=== PATIENT | female | born 1985 | race Caucasian/White ===

== ENCOUNTER 2021-12-14 20:24 | Emergency (ER) | payer OTHER, SELFPAY ==
[2021-12-14 20:45] VITALS: BP 121/77; PULSE 72; RESP 20; TEMP 36.4; O2SAT 98; BMI 29.6
--- NOTE | 2021-12-14 23:25 | ED.ANIMALBIT ---
HPI - Animal Bite General Chief Complaint: Animal Bite Stated Complaint: needs antibiotics, cuts on hands from animal Time Seen by Provider: 12/14/21 23:25 Source: patient Mode of arrival: ambulatory Limitations: no limitations History of Present Illness HPI narrative: Patient dog was chasing a cat cat fell down from the tree when patient tried to take her she scratched and bit her on right index finger. No other injuries patient is keeping the cat at home Related Data Previous Rx's Medication Instructions Recorded cyclobenzaprine 10 mg tablet 10 mg PO Q8H 5 days #15 tabs 10/09/21 nirmatrelvir 300 mg (150 mg x See Rx Instructions PO .COMPLEX 10/11/21 2)-ritonavir 100 mg tablet (EUA) #30 tabs (Paxlovid 300 mg () amoxicillin 875 mg-potassium 1 tab PO BID #20 tabs 12/14/21 clavulanate 125 mg tablet Allergies Allergy/AdvReac Type Severity Reaction Status Date / Time acetaminophen [Tylenol] Allergy Unknown stomach Verified 12/14/21 20:47 upset doxycycline Allergy Unknown stomach Verified 12/14/21 20:47 upset No Known Allergies Allergy Unknown Unverified 10/09/21 15:53 Review of Systems Review of Systems: Yes all other systems are reviewed and are negative [facility] Social History Social History Patient Tobacco Use Status: Current everyday Tobacco user Physical Exam ED Vital Signs: Vital Signs - 24 hr 12/14/21 20:45 Temperature 97.6 F Pulse Rate 72 Respiratory Rate 20 Blood Pressure 121/77 Pulse Oximetry 98 Oxygen Delivery Method Room Air BMI result Body Mass Index 29.6 Extrem Hand/finger images: 1. Superficial laceration right index finger tendons are intact good range of movement Discharge Plan Discharge Clinical Impression: Cat bite Patient Disposition: Home, Self-Care Instructions: Animal Bite (ED) Additional Instructions: Local care as advised Take antibiotic to avoid infection Report to ER if worsening of swelling or infection Prescriptions: New amoxicillin-pot clavulanate 875-125 mg tablet 1 tab PO BID Qty: 20 0RF No Action cyclobenzaprine 10 mg tablet 10 mg PO Q8H 5 Days Qty: 15 0RF Paxlovid (EUA) 150 mg x 2- 100 mg tablet See Rx Instructions PO .COMPLEX Qty: 30 0RF Rx Instructions: take TWO 150 mg tablets of nirmatrelvir with ONE 100 mg tablet of ritonavir twice daily for 5 days PO
--- NOTE | 2021-12-14 23:46 | PC.NURSE ---
scratches to bilateral hands/ rt wrist, superficial bite to rt hand fingerpads
[2021-12-14] MEDS: Amoxicillin/Potassium Clav 875 MG TABLET PO (23:48)
[2021-12-14 23:49] VITALS: PULSE 64; RESP 16; O2SAT 98
--- NOTE | 2021-12-14 23:52 | PC.NURSE ---
bacitracin applied to abrasions/ superficial bites and covered with DPD . pt in no distress
== END 2021-12-15 00:18 | disposition home or self-care (01) ==
LOC: HO.ED 23:54
PROVIDERS: Emergency Provider Internal Medicine
DX: S61.250A Open bite of right index finger without damage to nail, initial encounter (principal); W55.01XA Bitten by cat, initial encounter; Y93.9 Activity, unspecified; Y92.9 Unspecified place or not applicable; Y99.9 Unspecified external cause status; Z79.899 Other long term (current) drug therapy
CPT/HCPCS: 99283; 99284

== ENCOUNTER 2022-05-23 20:54 | Emergency (ER) | payer OTHER, SELFPAY ==
[2022-05-23 21:13] VITALS: BP 143/94; PULSE 101; RESP 16; TEMP 36.8; O2SAT 99; BMI 56.4
[2022-05-23 21:34] LABS: Strep A Nucleic Acid Positive (Negative)
[2022-05-23 22:03] LABS: Influenza A PCR NEGATIVE (Negative); Influenza B PCR NEGATIVE (Negative); Resp Syncy Virus RNA Qual PCR NEGATIVE (Negative); SARS COV2 PCR INHOUSE NEGATIVE (Negative)
--- NOTE | 2022-05-23 23:33 | ED_ITS ---
HPI - General Adult General Chief complaint: General Medical Stated complaint: Sore Throat Time Seen by Provider: 05/23/22 23:33 Source: patient Mode of arrival: ambulatory Limitations: no limitations History of Present Illness HPI narrative: Patient complaining of sore throat for last 3 days started with scratching feeling now slightly pain to swallow no other family member sick no fever chills Related Data Previous Rx's Medication Instructions Recorded cyclobenzaprine 10 mg tablet 10 mg PO Q8H 5 days #15 tabs 10/09/21 nirmatrelvir 300 mg (150 mg See Rx Instructions PO .COMPLEX 10/11/21 x2)-ritonavir 100 mg tablet,dose #30 tabs pack(EUA) (Paxlovid) amoxicillin 875 mg-potassium 1 tab PO BID #20 tabs 12/14/21 clavulanate 125 mg tablet cefuroxime axetil 500 mg tablet 500 mg PO BID 7 days #14 tabs 05/23/22 ibuprofen 600 mg tablet 600 mg PO Q6H PRN fever or pain 05/23/22 #30 tabs Allergies Allergy/AdvReac Type Severity Reaction Status Date / Time acetaminophen [Tylenol] Allergy Unknown stomach Verified 12/14/21 20:47 upset doxycycline Allergy Unknown stomach Verified 12/14/21 20:47 upset No Known Allergies Allergy Unknown Unverified 10/09/21 15:53 Review of Systems Review of Systems: Yes all other systems are reviewed and are negative [facility] Social History Social History Patient Tobacco Use Status: Current everyday Tobacco user Advance Directives: No Physical Exam ED Vital Signs: Vital Signs - 24 hr 05/23/22 21:13 05/24/22 00:03 Temperature 98.2 F 98.9 F Pulse Rate 101 H 84 Respiratory Rate 16 18 Blood Pressure 143/94 H 132/87 Pulse Oximetry 99 97 Oxygen Delivery Method Room Air Room Air BMI result Body Mass Index 56.4 Appearance: Alert. Oriented X3. No acute distress. ENT: Erythematous posterior no exudates Oral Mucosa moist Neck: Normal inspection. Neck supple. CVS: Normal heart rate and rhythm. Pulses normal. Respiratory: No respiratory distress. Equal air entry bilateral, no wheezing/rales/rhonchi Skin: Skin warm and dry. Normal skin color. Normal skin turgor. Extremities: No lower extremity edema. Neuro: Oriented X 3. Medications Administered Discontinued Medications Generic Name Dose Route Start Last Admin Trade Name Freq PRN Reason Stop Dose Admin Cefuroxime Axetil 500 mg 05/23/22 23:36 05/24/22 00:02 Cefuroxime Axetil 500 Mg Tablet PO 05/23/22 23:37 500 mg ONCE ONE Administration Ibuprofen 600 mg 05/23/22 23:36 05/24/22 00:02 Ibuprofen 600 Mg Tablet PO 05/23/22 23:37 600 mg ONCE ONE Administration Medical Decision Making Medical Decision Making MDM Narrative: Patient with uncomplicated strep positive discharge patient home on Ceftin Lab Data MDM Lab Attestation statement: I reviewed the patient's lab results. Labs: Lab Results 05/23/22 05/23/22 Range/Units 21:19 21:19 Influenza Type A (PCR) NEGATIVE (Negative) Influenza Type B (PCR) NEGATIVE (Negative) RSV RNA Qual (PCR) NEGATIVE (Negative) SARS-CoV-2 RNA (RT-PCR) NEGATIVE (Negative) S. pyogenes GrpA SHAMA Positive A (Negative) Discharge Plan Discharge Clinical Impression: Strep pharyngitis Patient Disposition: Home, Self-Care Instructions: Strep Throat (ED) Additional Instructions: Take antibiotic as prescribed Follow with PCP if not better Prescriptions: New cefuroxime axetil 500 mg tablet 500 mg PO BID 7 Days Qty: 14 0RF ibuprofen 600 mg tablet 600 mg PO Q6H PRN (Reason: fever or pain) Qty: 30 0RF No Action amoxicillin-pot clavulanate 875-125 mg tablet 1 tab PO BID Qty: 20 0RF cyclobenzaprine 10 mg tablet 10 mg PO Q8H 5 Days Qty: 15 0RF Paxlovid (EUA) 150 mg x 2- 100 mg tablet See Rx Instructions PO .COMPLEX Qty: 30 0RF Rx Instructions: take TWO 150 mg tablets of nirmatrelvir with ONE 100 mg tablet of ritonavir twice daily for 5 days PO Interventions: ED Discharge Assessment Last Done: 05/24/22 00:08 Discharge Date/Time: 05/24/22 00:08
[2022-05-24] MEDS: Ibuprofen 600 MG TABLET PO (00:02)
[2022-05-24 00:03] VITALS: BP 132/87; PULSE 84; RESP 18; TEMP 37.2; O2SAT 97
== END 2022-05-24 00:08 | disposition home or self-care (01) ==
PROVIDERS: Emergency Provider Internal Medicine
DX: J02.0 Streptococcal pharyngitis (principal); Z20.822 Contact with and (suspected) exposure to COVID-19; F17.200 Nicotine dependence, unspecified, uncomplicated
CPT/HCPCS: 0241U; 36415; 87651; 99283

== ENCOUNTER 2022-10-16 15:09 | Emergency (ER) | payer OTHER, SELFPAY ==
--- NOTE | ~2022-10-16 | XR_ITS ---
EXAMINATION: XR FINGER, RIGHT CLINICAL INFORMATION: Laceration COMPARISON: None available. TECHNIQUE: Three views of the right second. FINDINGS: There is a comminuted minimally displaced fracture of the distal tuft of the right second finger. There is evidence of trauma to the overlying soft tissues suggestive of a compound fracture. No soft tissue foreign body. Normal joint spaces. XR/XR finger RT min 2V IMPRESSION: Compound fracture of the distal tuft of the second finger.
[2022-10-16 16:37] VITALS: BP 159/92; PULSE 68; RESP 16; TEMP 36.8; O2SAT 100; BMI 25.6
--- NOTE | 2022-10-16 16:39 | ED_ITS ---
HPI - Extremity Injury (Upper) General Chief Complaint: Wound/Laceration Stated Complaint: right finger injury Time Seen by Provider: 10/16/22 18:19 Related Data Previous Rx's Medication Instructions Recorded cyclobenzaprine 10 mg tablet 10 mg PO Q8H 5 days #15 tabs 10/09/21 nirmatrelvir 300 mg (150 mg See Rx Instructions PO .COMPLEX 10/11/21 x2)-ritonavir 100 mg tablet,dose #30 tabs pack(EUA) (Paxlovid) amoxicillin 875 mg-potassium 1 tab PO BID #20 tabs 12/14/21 clavulanate 125 mg tablet cefuroxime axetil 500 mg tablet 500 mg PO BID 7 days #14 tabs 05/23/22 ibuprofen 600 mg tablet 600 mg PO Q6H PRN fever or pain 05/23/22 #30 tabs cephalexin 250 mg capsule 250 mg PO Q6H 5 days #20 caps 10/16/22 ibuprofen 600 mg tablet 600 mg PO Q6H PRN pain #45 tabs 10/16/22 oxycodone 5 mg capsule 5 mg PO BID PRN severe pain #10 10/16/22 caps Allergies Allergy/AdvReac Type Severity Reaction Status Date / Time acetaminophen [Tylenol] Allergy Unknown stomach Verified 10/16/22 16:43 upset doxycycline Allergy Unknown stomach Verified 10/16/22 16:43 upset PMFSH Social History Social History Alcohol intake: current Alcohol intake frequency: holidays/special occasions only Patient Tobacco Use Status: Current everyday Tobacco user Substance Use Type: Marijuana Physical Exam Vital Signs: Vital Signs: Last Vital Signs Temp 98.1 F 10/16/22 19:56 Pulse 60 10/16/22 19:56 Resp 19 10/16/22 19:56 BP 127/78 10/16/22 19:56 Pulse Ox 97 10/16/22 19:56 O2 Del Method Room Air 10/16/22 19:56 BMI result Body Mass Index 25.6 Course Course Course Narrative: RME: 37 yo F w/no sig PMHx c/o laceration to distal R index finger involving nail s/p doing yard work [employer]. admits was cutting ruth ann w/ and she got cut w/bong. Tetanus unknown +lac to right index finger involving nail. not through and through XR & TDap ordered Full HPI, ROS and PE to be performed by primary ED provider. Medications Administered Discontinued Medications Generic Name Dose Route Start Last Admin Trade Name Freq PRN Reason Stop Dose Admin Diphtheria/Tetanus/Acell Pertussis 0.5 ml 10/16/22 16:39 10/16/22 18:19 Diphth,Pertus(Acell),Tet Adult 0.5 Ml Syringe IM 10/16/22 16:40 0.5 ml .ONCE ONE Administration Ibuprofen 600 mg 10/16/22 18:46 10/16/22 19:01 Ibuprofen 600 Mg Tablet PO 10/16/22 18:47 600 mg ONCE ONE Administration Lidocaine HCl 5 ml 10/16/22 18:47 10/16/22 19:01 Lidocaine Hcl 1 % Mpf 5 Ml Vial INFILTRATI 10/16/22 18:48 5 ml ONCE ONE Administration Oxycodone HCl 5 mg 10/16/22 20:02 10/16/22 20:16 Oxycodone Hcl Immed Release 5 Mg Tablet PO 10/16/22 20:03 5 mg ONCE ONE Administration Discharge Plan Discharge Clinical Impression: Laceration of finger, Open fracture of tuft of distal phalanx of finger Patient Disposition: Home, Self-Care Instructions: Finger Fracture (ED), Finger Laceration (ED) Additional Instructions: Please follow-up with orthopedics. Call tomorrow to make an appointment. Have sutures removed in 10-14 days. Keep dressing on finger for the next 24 hours. You may gently cleanse the wound with mild soap and water tomorrow. Keep a close eye on your wound. Watch for any signs of infection fevers chills, increased redness or swelling. Take prescribed antibiotics as directed. Take ibuprofen as directed as needed for pain. Take oxycodone as needed for severe pain. Do not drink alcohol or drive while taking this medication. We will be unable to refill this controlled substance from the emergency department, you must follow-up with your primary care physician or Orthopedics for further pain management as needed. If any new or worsening symptoms occur please return for re-evaluation Prescriptions: New cephalexin 250 mg capsule 250 mg PO Q6H 5 Days Qty: 20 0RF ibuprofen 600 mg tablet 600 mg PO Q6H PRN (Reason: pain) Qty: 45 0RF oxycodone 5 mg capsule 5 mg PO BID PRN (Reason: severe pain) Qty: 10 0RF Rx Instructions: Partial Fill upon patient request. No Action amoxicillin-pot clavulanate 875-125 mg tablet 1 tab PO BID Qty: 20 0RF cefuroxime axetil 500 mg tablet 500 mg PO BID 7 Days Qty: 14 0RF ibuprofen 600 mg tablet 600 mg PO Q6H PRN (Reason: fever or pain) Qty: 30 0RF cyclobenzaprine 10 mg tablet 10 mg PO Q8H 5 Days Qty: 15 0RF Paxlovid (EUA) 150 mg x 2- 100 mg tablet See Rx Instructions PO .COMPLEX Qty: 30 0RF Rx Instructions: take TWO 150 mg tablets of nirmatrelvir with ONE 100 mg tablet of ritonavir twice daily for 5 days PO Referrals: [facility] [place] Orth[facility] Surgeons [Provider Group] Interventions: ED Discharge Assessment Last Done: 10/16/22 20:28 Discharge Date/Time: 10/16/22 20:29
--- NOTE | 2022-10-16 18:06 | PC.NURSE ---
Patient presents after her finger was lacerated while her and SO were doing yard work and her finger was sliced with a grid trimmer. Patient has a 2 inch laceration to the right middle finger that cuts through her fingernail.
[2022-10-16] MEDS: Diphth,Pertus(ACell),Tet Adult 0.5 ML SYRINGE IM (18:19)
--- NOTE | 2022-10-16 18:42 | ED_ITS ---
HPI - Wound/Laceration General Chief Complaint: Wound/Laceration Stated Complaint: right finger injury Time Seen by Provider: 10/16/22 18:19 Source: patient and RN notes reviewed Mode of arrival: ambulatory Limitations: no limitations History of Present Illness HPI narrative: This is a 37-year-old female who presents emergency department today with complaints of right index finger laceration. Patient reports that her boyfriend was trimming the hedges and accidentally lacerated patient's right 2nd finger with this trench trimmer fine. Patient immediately rinsed out the wound with water. Patient is unsure last dose was given to her. She sensation in her fingertips and is able to flex and extend the finger. No other complaints or concerns at this time. Onset (ago): hour(s) Extremity Location: right: hand (Second finger ) Place: home Patient tetanus UTD: No Context: accidental Associated symptoms: pain Related Data Previous Rx's Medication Instructions Recorded cyclobenzaprine 10 mg tablet 10 mg PO Q8H 5 days #15 tabs 10/09/21 nirmatrelvir 300 mg (150 mg See Rx Instructions PO .COMPLEX 10/11/21 x2)-ritonavir 100 mg tablet,dose #30 tabs pack(EUA) (Paxlovid) amoxicillin 875 mg-potassium 1 tab PO BID #20 tabs 12/14/21 clavulanate 125 mg tablet cefuroxime axetil 500 mg tablet 500 mg PO BID 7 days #14 tabs 05/23/22 ibuprofen 600 mg tablet 600 mg PO Q6H PRN fever or pain 05/23/22 #30 tabs cephalexin 250 mg capsule 250 mg PO Q6H 5 days #20 caps 10/16/22 ibuprofen 600 mg tablet 600 mg PO Q6H PRN pain #45 tabs 10/16/22 oxycodone 5 mg capsule 5 mg PO BID PRN severe pain #10 10/16/22 caps Allergies Allergy/AdvReac Type Severity Reaction Status Date / Time acetaminophen [Tylenol] Allergy Unknown stomach Verified 10/16/22 16:43 upset doxycycline Allergy Unknown stomach Verified 10/16/22 16:43 upset Review of Systems Review of Systems: Constitutional: No Weight loss, No Fever, No Chills ENT/Mouth: No Ear Pain, No Nasal Congestion, No Sinus Pain, No Hoarseness, No sore throat, No Rhinorrhea, No Swallowing Difficulty Cardiovascular: No Chest Pain, No SOB Respiratory: No Cough, No Sputum, No Wheezing Gastrointestinal: No Nausea, No Vomiting, No Diarrhea, No Constipation, No Abdominal pain Genitourinary: No Dysuria, No Urinary Frequency, No Hematuria, No Urinary Incontinence/retention, No Urgency, No Flank Pain Musculoskeletal: No Myalgias, No Joint Swelling Skin: +laceration No Skin Lesions, No rash Neuro: No Weakness, No Numbness, No Paresthesias Yes all other systems are reviewed and are negative Constitutional: Constitutional: Reports as per [facility] Social History Social History Alcohol intake: current Alcohol intake frequency: holidays/special occasions only Patient Tobacco Use Status: Current everyday Tobacco user Smoked in Last 30 Days: Yes Use of substances other than those prescribed or required for medical reasons: Yes Substance Use Type: Marijuana Advance Directives: No Advance Directives Information Provided: Yes Physical Exam Vital Signs: Vital Signs: Last Vital Signs Temp 98.1 F 10/16/22 19:56 Pulse 60 10/16/22 19:56 Resp 19 10/16/22 19:56 BP 127/78 10/16/22 19:56 Pulse Ox 97 10/16/22 19:56 O2 Del Method Room Air 10/16/22 19:56 BMI result Body Mass Index 25.6 Const: General: cooperative, comfortable and no acute distress Orientation/consciousness: patient oriented x3 Limitations: no limitations HEENT: Head: Yes normal to inspection, Yes normocephalic and Yes atraumatic Ears: hearing grossly normal bilaterally General nose exam: Normal external nose present Face and sinus: Yes normal facial exam Mouth: Normal oral and palatal mucosa present, oropharynx normal and moist mucous membranes Throat: Yes posterior oropharynx normal Eyes: General: appearance normal, both eyes and all related structures Eyelids: Yes eyelids normal Conjunctivae: conjunctivae normal Sclerae: sclerae normal Pupils: Equal, round and reactive pupils present EOM: EOMs intact bilaterally Neck: Neck: Yes normal visual inspection, Yes full ROM and Yes no lymphadenopathy Lymphatic: no lymphadenopathy noted Chest: Chest palpation & inspection: normal inspection of the chest Resp: Effort & Inspection: normal respiratory effort and able to speak in complete sentences Auscultation: clear to auscultation bilaterally, no crackles, no rales, no rhonchi and no wheezes Cardio: Rate: regular rate Rhythm: regular rhythm Heart sounds: S1 normal heart sound present and S2 normal heart sound present GI: Inspection: Yes normal to inspection Skin: Other: See above - able to flex and extend at the PIP and DIP. Full sensation and circulation intact. General skin exam: no rashes or lesions noted Trauma: no lacerations or abrasions Wounds: no wounds Neuro: General: patient oriented x3 and moves all extremities Cranial nerves: Yes Equal, round and reactive pupils present Extrem: General: Yes normal to inspection Right upper extremity: normal to inspection Left upper extremity: normal to inspection Right lower extremity: normal to inspection Left lower extremity: normal to inspection Medications Administered Discontinued Medications Generic Name Dose Route Start Last Admin Trade Name Freq PRN Reason Stop Dose Admin Diphtheria/Tetanus/Acell Pertussis 0.5 ml 10/16/22 16:39 10/16/22 18:19 Diphth,Pertus(Acell),Tet Adult 0.5 Ml Syringe IM 10/16/22 16:40 0.5 ml .ONCE ONE Administration Ibuprofen 600 mg 10/16/22 18:46 10/16/22 19:01 Ibuprofen 600 Mg Tablet PO 10/16/22 18:47 600 mg ONCE ONE Administration Lidocaine HCl 5 ml 10/16/22 18:47 10/16/22 19:01 Lidocaine Hcl 1 % Mpf 5 Ml Vial INFILTRATI 10/16/22 18:48 5 ml ONCE ONE Administration Oxycodone HCl 5 mg 10/16/22 20:02 10/16/22 20:16 Oxycodone Hcl Immed Release 5 Mg Tablet PO 10/16/22 20:03 5 mg ONCE ONE Administration Medical Decision Making Medical Decision Making MDM Narrative: 37-year-old female presenting to the emergency department today with right index finger injury. Patient's boyfriend accidentally clipped her right index finger with hedge clippers. She immediately cleansed the wound. She is able to flex and extend at the PIP and DIP. Distal sensation circulation intact. Bleeding is controlled. Patient's tetanus was updated in the department. Patient medicated with ibuprofen 600 mg p.o. x-ray shows compound fracture of the distal tuft of the 2nd finger. I discussed this case with orthopedic PA, Emily Aceves, who agree with cleansing wound closure and follow-up with orthopedics this week. Wound cleansed extensively in closed using 4 4-0 nylon sutures. See procedure note. Patient's right finger dressed with bacitracin and dressing with finger splint in extension. Patient given wound care instructions. The patient having some pain to her, due to allergy to Tylenol, oxycodone 5 mg PO given to patient prior to departure. Patient discharged on prophylactic antibiotic, Keflex, and pain medication. Patient educated the importance of following up with Orthopedics. Patient understands and agrees with plan. Patient stable for discharge. Differential Diagnosis Differential Diagnoses: The differential diagnosis associated with the presentation includes Right 2nd finger laceration, fracture, sprain, foreign body Admission/Observation Consideration of admission/observation: Escalation of care including admission/observation considered Lab Data MDM Lab Attestation statement: I reviewed the patient's lab results. Independent Interpretation I performed an independent interpretation of an: Plain X-Ray Interpretation: I personally reviewed the x-ray and agree with the radiology report. Radiology Impression Discussion of test interpretation with radiology: I have reviewed the radiologist's reading. Radiologist Impression: EXAMINATION: XR FINGER, RIGHT CLINICAL INFORMATION: Laceration? COMPARISON: None available.? TECHNIQUE: Three views of the right second. FINDINGS: There is a comminuted minimally displaced fracture of the distal tuft of the right second finger. There is evidence of trauma to the overlying soft tissues suggestive of a compound fracture. No soft tissue foreign body. Normal joint spaces. XR/XR finger RT min 2V IMPRESSION: Compound fracture of the distal tuft of the second finger. Dictated By: Sophie Owens MD Signed By: <Electronically signed by Sophie Owens MD in OV> 10/16/22 [id number] DD/ 1700 TD/TT:? Dental Technology Advisor: SANDY External Record Review External record reviewed: Inpatient record, Office record, Outpatient record, Prior outpatient labs, Prior outpatient radiology, Primary care record and Outside ED record Procedures Procedure Narrative Procedure Narrative: Wound extensively cleansed using saline and Betadine. Deep structures intact. Digital block achieved using 4 cc of 1% lidocaine without epinephrine. Wound closed using 4 4-0 simple interrupted nylon sutures, 1 of which is through the nail. Wound dressed with Betadine and wrapped in gauze and placed in finger splint. Patient tolerated procedure well without any complications or concerns. Laceration Laceration 1: Site: upper extremity and hand Side (If applicable): right Size (cm): 2 Description: linear Depth: simple, single layer Local Anesthetic: lidocaine 1% Amount of anesthesia used (mL): 4 Pre-repair: wound explored, irrigated extensively and deep structures intact Skin layer closed with: nylon Size (cm): 4-0 Number of sutures: 4 Discharge Plan Discharge Clinical Impression: Laceration of finger, Open fracture of tuft of distal phalanx of finger Patient Disposition: Home, Self-Care Instructions: Finger Fracture (ED), Finger Laceration (ED) Additional Instructions: Please follow-up with orthopedics. Call tomorrow to make an appointment. Have sutures removed in 10-14 days. Keep dressing on finger for the next 24 hours. You may gently cleanse the wound with mild soap and water tomorrow. Keep a close eye on your wound. Watch for any signs of infection fevers chills, increased redness or swelling. Take prescribed antibiotics as directed. Take ibuprofen as directed as needed for pain. Take oxycodone as needed for severe pain. Do not drink alcohol or drive while taking this medication. We will be unable to refill this controlled substance from the emergency department, you must follow-up with your primary care physician or Orthopedics for further pain management as needed. If any new or worsening symptoms occur please return for re-evaluation Prescriptions: New cephalexin 250 mg capsule 250 mg PO Q6H 5 Days Qty: 20 0RF ibuprofen 600 mg tablet 600 mg PO Q6H PRN (Reason: pain) Qty: 45 0RF oxycodone 5 mg capsule 5 mg PO BID PRN (Reason: severe pain) Qty: 10 0RF Rx Instructions: Partial Fill upon patient request. No Action amoxicillin-pot clavulanate 875-125 mg tablet 1 tab PO BID Qty: 20 0RF cefuroxime axetil 500 mg tablet 500 mg PO BID 7 Days Qty: 14 0RF ibuprofen 600 mg tablet 600 mg PO Q6H PRN (Reason: fever or pain) Qty: 30 0RF cyclobenzaprine 10 mg tablet 10 mg PO Q8H 5 Days Qty: 15 0RF Paxlovid (EUA) 150 mg x 2- 100 mg tablet See Rx Instructions PO .COMPLEX Qty: 30 0RF Rx Instructions: take TWO 150 mg tablets of nirmatrelvir with ONE 100 mg tablet of ritonavir twice daily for 5 days PO Referrals: [facility] [place] Orthopedic Surgeons [Provider Group] Interventions: ED Discharge Assessment Last Done: 10/16/22 20:28 Discharge Date/Time: 10/16/22 20:29
[2022-10-16] MEDS: Ibuprofen 600 MG TABLET PO (19:01)
[2022-10-16] MEDS: Lidocaine HCl 1 % MPF 5 ML VIAL INFILTRATI (19:01)
[2022-10-16 19:56] VITALS: BP 127/78; PULSE 60; RESP 19; TEMP 36.7; O2SAT 97
[2022-10-16] MEDS: oxyCODONE HCl Immed Release 5 MG TABLET PO (20:16)
== END 2022-10-16 20:29 | disposition home or self-care (01) ==
PROVIDERS: Emergency Provider Internal Medicine
DX: S61.310A Laceration without foreign body of right index finger with damage to nail, initial encounter (principal); S62.630B Displaced fracture of distal phalanx of right index finger, initial encounter for open fracture; W29.3XXA Contact with powered garden and outdoor hand tools and machinery, initial encounter; Y93.H2 Activity, gardening and landscaping; Y92.017 Garden or yard in single-family (private) house as the place of occurrence of the external cause; Y99.9 Unspecified external cause status
CPT/HCPCS: 12001; 29130; 73140; 90471; 90715; 99284

== ENCOUNTER → 2022-10-24 14:52 | Outpatient (BNVA) | payer OTHER, SELFPAY | PROVIDERS: Visit Provider Physician Assistant | DX: S62.630A Displaced fracture of distal phalanx of right index finger, initial encounter for closed fracture (principal) | CPT/HCPCS: 99202 ==

== ENCOUNTER → 2022-10-31 12:03 | Outpatient (BNVA) | payer OTHER, SELFPAY | PROVIDERS: Visit Provider Physician Assistant | DX: S61.219D Laceration without foreign body of unspecified finger without damage to nail, subsequent encounter (principal); S62.639D Displaced fracture of distal phalanx of unspecified finger, subsequent encounter for fracture with routine healing | CPT/HCPCS: 99212 ==

== ENCOUNTER 2022-11-07 07:09 | Outpatient (REF) | payer OTHER, SELFPAY ==
--- NOTE | ~2022-11-07 | XR_ITS ---
EXAMINATION: XR HAND, RIGHT CLINICAL INFORMATION: Pain COMPARISON: Hand radiographs 10/16/2022 TECHNIQUE: PA, lateral, and oblique views of the right hand. FINDINGS: Redemonstration of a mildly comminuted fractures of the tuft of the second distal phalanx with slight increased degree of displacement. Joint spaces are maintained. Mild soft tissue swelling about the second digit. XR/XR hand RT min 3V IMPRESSION: 1. Redemonstration of a mildly comminuted fractures of the tuft of the second distal phalanx with slight increased degree of displacement. 2. Mild soft tissue swelling about the second digit.
== END 2022-11-07 07:10 | disposition home or self-care (01) ==
LOC: HO.HOSX 07:09
PROVIDERS: Visit Provider Orthopaedic Surgery
DX: S61.310A Laceration without foreign body of right index finger with damage to nail, initial encounter (principal); S60.410A Abrasion of right index finger, initial encounter; L08.9 Local infection of the skin and subcutaneous tissue, unspecified
CPT/HCPCS: 73130; 99212

== ENCOUNTER 2022-11-12 06:03 | Day surgery (SDC) | payer OTHER, SELFPAY ==
--- NOTE | 2022-11-09 08:45 | HO.ANESPROP2 ---
Documented by User: Ginny Friend NP 11/09/22 08:45 HPI - Anesthesia Eval Consult details Narrative: 37yo F for Right irrigation and debridement of fx,removal of nail plate,poss ORIF,repair of nail bed PMF Active Problems Active Problems: All Active Problems (Updated 11/07/22 @ 08:53 by Rafi Lock) Abrasion of right index finger with infection (Acute) Laceration of right index finger with damage to nail (Acute) Past Medical History Medical History (Updated 11/12/22 @ 06:21 by Almita Isabel RN) H/O tonsillitis Surgical History Surgical History (Updated 11/12/22 @ 06:21 by Almita Isabel RN) History of tonsillectomy and adenoidectomy Social History Social History Alcohol intake: current Alcohol intake frequency: holidays/special occasions only Patient Tobacco Use Status: Current everyday Tobacco user Substance Use Type: Marijuana Are you DNR?: No Advance Directives: No Advance Directives Information Provided: Yes Patient : No Current occupational status: employed 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 Allergies Allergy/AdvReac Type Severity Reaction Status Date / Time acetaminophen [Tylenol] Allergy Unknown stomach Verified 11/07/22 08:04 upset doxycycline Allergy Unknown stomach Verified 11/07/22 08:04 upset Exam Exam Date and Time: November 09, 2022 0845 Assessment and Plan Assessment Anesthesia Assessment: Chart Reviewed Documented by User: Davonte Brunson MD 11/12/22 07:15 PMFSH Past Medical History Medical History (Updated 11/12/22 @ 06:21 by Almita Isabel, RN) H/O tonsillitis Family History Family history of problems with anesthesia: No Surgical History Surgical History (Updated 11/12/22 @ 06:21 by Almita Isabel RN) History of tonsillectomy and adenoidectomy History of Problems with Anesthesia: No Social History Social History Alcohol intake: current Alcohol intake frequency: holidays/special occasions only Patient Tobacco Use Status: Current everyday Tobacco user Substance Use Type: Marijuana Are you DNR?: No Advance Directives: No Advance Directives Information Provided: Yes Patient : No Current occupational status: employed 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 Allergies Allergy/AdvReac Type Severity Reaction Status Date / Time acetaminophen [Tylenol] Allergy Unknown stomach Verified 11/07/22 08:04 upset doxycycline Allergy Unknown stomach Verified 11/07/22 08:04 upset Exam Airway Mallampati Class: II TM Dist: >3cm Neck ROM: Full Heart: rrr Lungs: cta Assessment and Plan Assessment Anesthesia Assessment: Anesthesia Plan Discussed Final Anesthetic Review Family History of Problems with Anesthesia: No History of Problems with Anesthesia: No NPO: Yes Final Preanesthetic Review: No Changes in Pt Med Stat, Meds/Allgs Chart Reviewed, Consent Obtained/Reviewed and Anes Risks/Benef Reviewed Patient Risk: Low Procedure Risk: Low Anesthetic Plan Anesthetic Plan: GA Disposition: Standard PACU
[2022-11-12] VITALS (7 sets, daily range): BP systolic 110–140; BP diastolic 75–87; PULSE 60–92; RESP 16–18; TEMP 36.1–36.7; O2SAT 97; BMI 25.1
--- NOTE | ~2022-11-12 | FL_ITS ---
EXAMINATION: XR FLUOROSCOPY WITH IMAGES CLINICAL INFORMATION: ORIF right index finger COMPARISON: Previous right hand x-ray and finger x-ray October 2022 TECHNIQUE: preformed by DR. Bryan 14.27 seconds 0.2754mGy 0.0166 gycm2 FINDINGS: There is a displaced fracture of the distal tuft of the second finger. Images demonstrate reduction and improved alignment. Final images demonstrate a K wire or pin across the fracture and DIP joint of the second finger. FL/FL guidance in OR IMPRESSION: ORIF of right second finger fracture.
[2022-11-12 06:21] LABS: UPreg QC Valid YES; Urine Pregnancy NEGATIVE (NEGATIVE)
[2022-11-12] MEDS: Lactated Ringers 1,000 ML 100 ML IVCONT (06:38)
[2022-11-12] MEDS: oxyCODONE HCl Immed Release 5 MG TABLET PO (09:16)
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
--- NOTE | 2022-11-12 09:16 | MHC.SHP ---
Pre-Procedural Eval Section A Date of Service: 11/12/22 The patient is an INPATIENT: No Changes since office visit: No Cold of Flu in the past 2 weeks, No New Medical Problems, No Changes in Medication and No Patient answered all questions The History & Physical has been completed within 30 days and I have reviewed it.: Yes Section B Chief Complaint: Laceration w/o foreign,abrasion,displaced fx, Allergies: Allergies Allergy/AdvReac Type Severity Reaction Status Date / Time acetaminophen [Tylenol] Allergy Unknown stomach Verified 11/07/22 08:04 upset doxycycline Allergy Unknown stomach Verified 11/07/22 08:04 upset Plan I have reviewed the history and physical and performed a pertinent physical examination on my patient. No changes have occurred unless specified. Time Spent With Patient Time: Total time managing care of this patient today ____ minutes.
== END 2022-11-12 10:03 | disposition home or self-care (01) ==
PROVIDERS: Nurse Practitioner; Visit Provider Orthopaedic Surgery
PROC: (CPT 26765; principal; 2022-11-12 07:30)
DX: S62.630B Displaced fracture of distal phalanx of right index finger, initial encounter for open fracture (principal); M79.641 Pain in right hand; B95.62 Methicillin resistant Staphylococcus aureus infection as the cause of diseases classified elsewhere; L08.9 Local infection of the skin and subcutaneous tissue, unspecified; W29.3XXA Contact with powered garden and outdoor hand tools and machinery, initial encounter; Y93.9 Activity, unspecified; Y92.9 Unspecified place or not applicable; Y99.8 Other external cause status; Z88.1 Allergy status to other antibiotic agents; Z88.8 Allergy status to other drugs, medicaments and biological substances; F17.210 Nicotine dependence, cigarettes, uncomplicated; F12.90 Cannabis use, unspecified, uncomplicated
CPT/HCPCS: 26765; 26010; 81025; 87070; 87077; 87186; 87205; J0690; J1100; J1885; J2405; J2795

== ENCOUNTER 2022-11-17 23:40 | Emergency (ER) | payer OTHER, SELFPAY ==
[2022-11-18 00:44] VITALS: BP 148/90; PULSE 85; RESP 18; TEMP 36.9; O2SAT 98; BMI 25.2
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
== END 2022-11-18 01:24 | disposition home or self-care (01) ==
PROVIDERS: Emergency Provider Emergency Medicine
DX: S50.311A Abrasion of right elbow, initial encounter (principal); S80.212A Abrasion, left knee, initial encounter; V03.90XA Pedestrian on foot injured in collision with car, pick-up truck or van, unspecified whether traffic or nontraffic accident, initial encounter; Y93.9 Activity, unspecified; Y92.410 Unspecified street and highway as the place of occurrence of the external cause; Y99.9 Unspecified external cause status
CPT/HCPCS: 99282; 99283

== ENCOUNTER → 2022-11-20 13:25 | Outpatient (BNVA) | payer OTHER, SELFPAY | PROVIDERS: Visit Provider Physician Assistant | DX: S62.630D Displaced fracture of distal phalanx of right index finger, subsequent encounter for fracture with routine healing (principal); S60.410D Abrasion of right index finger, subsequent encounter; L08.9 Local infection of the skin and subcutaneous tissue, unspecified | CPT/HCPCS: 99212 ==

== ENCOUNTER → 2022-11-27 14:52 | Outpatient (BNVA) | payer OTHER, SELFPAY | PROVIDERS: Visit Provider Physician Assistant | DX: S62.630B Displaced fracture of distal phalanx of right index finger, initial encounter for open fracture (principal); S60.410A Abrasion of right index finger, initial encounter; L08.9 Local infection of the skin and subcutaneous tissue, unspecified; B95.62 Methicillin resistant Staphylococcus aureus infection as the cause of diseases classified elsewhere; X58.XXXA Exposure to other specified factors, initial encounter | CPT/HCPCS: 99212 ==

== ENCOUNTER 2022-12-03 10:11 | Outpatient (REF) | payer OTHER, SELFPAY ==
--- NOTE | ~2022-12-03 | XR_ITS ---
EXAMINATION: XR HAND, RIGHT CLINICAL INFORMATION: Pain. COMPARISON: Radiographs dated 11/23/2022. TECHNIQUE: PA, lateral, and oblique views of the right hand. FINDINGS: A mildly displaced fracture is again seen of the tuft of the second distal phalanx an orthopedic fixator pin again traverses the second distal interphalangeal joint. No dislocation is seen. This no focal soft tissue swelling, gas or foreign body. XR/XR hand RT min 3V IMPRESSION: There is stable alignment status-post ORIF of a transverse fracture of the tuft of the right second distal phalanx.
== END 2022-12-03 10:12 | disposition home or self-care (01) ==
LOC: HO.HOSX 10:11
PROVIDERS: Visit Provider Physician Assistant
DX: S61.310D Laceration without foreign body of right index finger with damage to nail, subsequent encounter (principal); L08.9 Local infection of the skin and subcutaneous tissue, unspecified
CPT/HCPCS: 73130; 99212

== ENCOUNTER 2022-12-12 10:29 | Outpatient (REF) | payer OTHER, SELFPAY ==
--- NOTE | ~2022-12-12 | XR_ITS ---
EXAMINATION: XR HAND, RIGHT CLINICAL INFORMATION: Pain in the right hand COMPARISON: 10/16/2022 and 12/03/2022. TECHNIQUE: PA, lateral, and oblique views of the right hand. FINDINGS: Prior laceration injury of the distal phalanx. Again noted is the oblique fracture involving the phalangeal tuft of the index finger status post K wire fixation. The distal phalanx is osteopenic and the gap between fragments is 0.1 cm. There has been development of relatively smooth margins along the fracture with lack of osseous union. These findings are unchanged compared to 12/03/2022. No periosteal reaction. Bones have normal alignment throughout the hand and wrist. XR/XR hand RT min 3V IMPRESSION: There is lack of osseous union of the phalangeal tuft fracture of the index finger, status post K wire fixation.
== END 2022-12-12 10:30 | disposition home or self-care (01) ==
LOC: HO.HOSX 10:29
PROVIDERS: Visit Provider Orthopaedic Surgery
DX: S62.630D Displaced fracture of distal phalanx of right index finger, subsequent encounter for fracture with routine healing (principal); S61.310D Laceration without foreign body of right index finger with damage to nail, subsequent encounter; M86.9 Osteomyelitis, unspecified
CPT/HCPCS: 73130

== ENCOUNTER 2022-12-19 15:12 | Outpatient (AMB) | payer OTHER, SELFPAY ==
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
[2022-12-19 15:22] VITALS: BP 122/70; PULSE 92; O2SAT 98; BMI 25.4
== END 2022-12-19 15:58 | disposition home or self-care (01) ==
LOC: HO.HID 15:12
PROVIDERS: Visit Provider Internal Medicine
DX: S62.630B Displaced fracture of distal phalanx of right index finger, initial encounter for open fracture (principal); S61.310A Laceration without foreign body of right index finger with damage to nail, initial encounter
CPT/HCPCS: 99203

== ENCOUNTER → 2022-12-19 15:12 | Outpatient (BNVA) | payer OTHER, SELFPAY | PROVIDERS: Visit Provider Internal Medicine | DX: S62.630A Displaced fracture of distal phalanx of right index finger, initial encounter for closed fracture (principal); S61.310A Laceration without foreign body of right index finger with damage to nail, initial encounter | CPT/HCPCS: 99202 ==

== ENCOUNTER 2023-01-02 11:16 | Outpatient (REF) | payer OTHER, SELFPAY ==
--- NOTE | ~2023-01-02 | XR_ITS ---
EXAMINATION: XR HAND, RIGHT CLINICAL INFORMATION: Pain COMPARISON: Hand radiographs 12/12/2022 TECHNIQUE: PA, lateral, and oblique views of the right hand. FINDINGS: Interval removal of the percutaneous fixation pin from the second digit. 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 No new fracture or dislocation. Joint spaces are maintained. Soft tissues are unremarkable. XR/XR hand RT min 3V IMPRESSION: Interval removal of the percutaneous fixation pin from the second digit. 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
== END 2023-01-02 11:17 | disposition home or self-care (01) ==
LOC: HO.HOSX 11:16
PROVIDERS: Visit Provider Orthopaedic Surgery
DX: S62.630D Displaced fracture of distal phalanx of right index finger, subsequent encounter for fracture with routine healing (principal); S61.310D Laceration without foreign body of right index finger with damage to nail, subsequent encounter; M86.9 Osteomyelitis, unspecified
CPT/HCPCS: 73130

== ENCOUNTER 2023-01-02 11:39 | Outpatient (AMB) | payer OTHER, SELFPAY ==
--- NOTE | 2023-01-02 11:46 | A.OFFVIS_ITS ---
Intake Vital Signs 01/02/23 11:48 Height 5 ft 2 in Weight 139 lb BMI 25.4 Intake Visit Reasons: PO-ORIF I&D Open P3 fx, RONP, ORIF -w/XR 11/12/22 AR Intake Note: Muriel is a 37 year old right hand dominant female who was last seen with Brando Diaz for a wound check s/p Right ORIF I&D Open P3 fx, DOI 11/12/[address] Bryan. Patient reports she is improving on her ROM . Denies numbness. Allergies acetaminophen [Tylenol] Allergy (Unknown, Verified 01/02/23 11:48) stomach upset doxycycline Allergy (Unknown, Verified 01/02/23 11:48) stomach upset HPI PO-ORIF I&D Open P3 fx, RONP, ORIF -w/XR 11/12/22 AR HPI Details Muriel is a 37 year old right hand dominant woman who presents S/P right index finger open fracture I&D, ORIF, and removal of nail plate, DOS: 11/12/22. This is from an injury with a metal trimmer, DOI: 10/16/22. Her cultures grew out MRSA and she has been treated with clindamycin for almost 6 weeks. She says she is doing well today. She continues to have numbness in her finger, but feels this has slightly improved. The tip of her finger is still quite numb. She was seen by ID on 12/19/22, who said she was doing well and advised her to finished her Clindamycin. She should finish her Abx on 01/03/23. 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 Physical Exam Vital Signs: BMI result Body Mass Index 25.4 Const General: no acute distress and alert Orientation/consciousness: patient oriented x3 Neuro General: patient oriented x3 Extrem Other: The patient was alert oriented and in no acute distress The incision and pin-site are well healed with no erythema drainage or evidence of infection She can make a fist and extend all her digits Good active flexion and extension at the MCP & PIP joints Swelling in the index finger has resolved The index finger nail appears to be almost fully grown in Fracture site non-tender Her sensation is improving on the volar aspect of the finger though she still has dense numbness to the very tip of her finger Cap refill is brisk Radiographs: 3 views of the right hand, with attention to the index finger, were taken and viewed by me today in clinic. They show a right index finger distal phalanx fracture with satisfactory fracture alignment and some evidence of interval bony healing Microbiology report: Routine Culture Final 11/15/22 Organism 1 Methicillin Res Staph Aureus Quantity 2+ Result: 2+ Mixed skin cash MRSA M.I.C. RX --------- --- Clindamycin <=0.25 S Erythromycin >=8 R Oxacillin >=4 R Penicillin-G >=0.5 R Tetracycline <=1 S Trimethoprim/Sulfamethoxazole <=10 S Vancomycin <=0.5 S Psych Appearance: grossly normal Affect: normal affect Attitude: cooperative Assessment & Plan Assessment & Plan (1) Open fracture of distal phalanx of right index finger: Code(s): S62.630B - Displaced fracture of distal phalanx of right index finger, initial encounter for open fracture (2) Laceration of right index finger with damage to nail: Code(s): S61.310A - Laceration without foreign body of right index finger with damage to nail, initial encounter (3) Osteomyelitis of finger of right hand: Code(s): M86.9 - Osteomyelitis, unspecified Plan Assessment & Plan: 1. Right index finger open distal phalanx fx, with MRSA infection S/P I&D and ORIF, DOS: 11/12/22 2. Right index finger nailbed injury, S/P removal of nail plate DOS: 11/12/22 K-wire removed: 12/12/22 3. Right index finger numbness Since her metal trimmer injury DOI: 10/16/22 The patient appears to be doing well post-operatively I educated her about the post-operative course and the symptoms of infection. If she develops any increased erythema, warmth, drainage, or pain she is to contact the clinic or attend the ED She has been seen by Dr. Villa in Infectious Disease She will finish her Abx on 01/03/23 She will discontinue her finger splint at this time. She can wear this when outdoors in public spaces for the next 4 weeks I discussed activity modifications, she is to avoid any heavy pinching or gripping activities involving her index finger for the next 4 weeks. This includes opening jars She will continue to work on ROM exercises at home She is doing very well, and may now follow up as needed Scribed for Mariza Bryan MD by Rafi Lock, medical technologist, on 01/02/23 at 12:00 PM, EST. Orders: Orders XR hand RT min 3V Today M79.641 - Pain in right hand Coding Level of Care Code Global (46409) Diagnoses Open fracture of distal phalanx of right index finger S62.630B Laceration of right index finger with damage to nail S61.310A Osteomyelitis of finger of right hand M86.9
[2023-01-02 11:48] VITALS: BMI 25.4
== END 2023-01-02 12:49 | disposition home or self-care (01) ==
PROVIDERS: Visit Provider Orthopaedic Surgery
DX: S62.630B Displaced fracture of distal phalanx of right index finger, initial encounter for open fracture (principal); M86.9 Osteomyelitis, unspecified
CPT/HCPCS: 99024

== ENCOUNTER 2023-02-26 13:56 | Outpatient (REF) | payer OTHER, SELFPAY ==
--- NOTE | ~2023-02-26 | XR_ITS ---
EXAMINATION: XR HAND, RIGHT CLINICAL INFORMATION: Pain right index finger COMPARISON: 01/02/2023 TECHNIQUE: PA, lateral, and oblique views of the right hand. 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 No new acute fracture or dislocation. Mild degenerative changes first carpometacarpal joint with joint space narrowing and hypertrophic change. 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
== END 2023-02-26 13:57 | disposition home or self-care (01) ==
LOC: HO.HOSX 13:56
PROVIDERS: Visit Provider Orthopaedic Surgery
DX: L03.011 Cellulitis of right finger (principal)
CPT/HCPCS: 73130; 99212

== ENCOUNTER 2023-02-26 13:56 | Outpatient (AMB) | payer OTHER, SELFPAY ==
--- NOTE | 2023-02-26 14:10 | A.OFFVIS_ITS ---
Intake Vital Signs 02/26/23 14:18 Height 5 ft 2 in Weight 139 lb BMI 25.4 Intake Visit Reasons: PO-ORIF I&D Open P3 fx, RONP, ORIF -w/XR 11/12/22 AR Intake Note: Muriel is a 37 year old right hand dominant female presents today for a wound check s/p Right ORIF I&D Open P3 fx, DOI 11/12/[address] Bryan. States on 02/24/23 she noticed redness and tenderness by her nail bed. NO draining as of yet. States she has concerns of infection. Allergies acetaminophen [Tylenol] Allergy (Unknown, Verified 02/26/23 14:18) stomach upset doxycycline Allergy (Unknown, Verified 02/26/23 14:18) stomach upset HPI PO-ORIF I&D Open P3 fx, RONP, ORIF -w/XR 11/12/22 AR HPI Details Muriel is a 37 year old right hand dominant woman who presents S/P right index finger open fracture I&D, ORIF, and removal of nail plate, DOS: 11/12/22. This is from an injury with a shingle trimmer, DOI: 10/16/22. Her cultures grew out MRSA and she has been treated with clindamycin for almost 6 weeks. She was last seen by me on 01/02/2023 and was doing well at that time. The patient reports that she has begun to have some increased pain and swelling in the dorsal aspect of her right index finger just proximal to the eponychial fold. She denies any new injury. She continues to have numbness in her finger, but feels this has slightly improved. The tip of her index finger is still quite numb. She was seen by ID on 12/19/22, who said she was doing well and advised her to finished her Clindamycin. She finished her Abx on 01/03/23. 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 She can fully extend all of her digits including the right index finger and could bring them all closed to a fist including the right index finger. Her new nail is still growing in. She does appear to have some mild old erythema and swelling of the eponychial fold. It is mildly tender in this area. No open wound or drainage. She has good active flexion and extension of the digit including at the D IP joint. She is not particularly tender to palpation radially or ulnarly along the finger including as I across the D IP joint and onto the proximal phalanx. She is not particularly tender to axial loading or tenderness at the tip of the finger. She still has some numbness to the tip of the digit. Radiographs: Three views of the right hand with attention to the index finger were taken today and reviewed by me in clinic. 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 Alignment is satisfactory. There is no evidence of osteomyelitis. Assessment & Plan Assessment & Plan (1) Paronychia of right index finger: Code(s): L03.011 - Cellulitis of right finger Plan Assessment and plan: Assessment & Plan: 1. Right index finger paronychia, mild Radiographs are negative for evidence of osteomyelitis It is unclear if this may be related to her previous MRSA infection. I educated her about paronychia infection. I am going to have her performed soaks in warm salt water several times a day. Given her history of MRSA infection, we are going to also treat her with oral clindamycin. 2. Right index finger open distal phalanx fx, with MRSA infection S/P I&D and ORIF, DOS: 11/12/22 3. Right index finger nailbed injury, S/P removal of nail plate DOS: 11/12/22 K-wire removed: 12/12/22 4. Right index finger numbness Since her shingle trimmer injury DOI: 10/16/22 If all is going well, she can follow up for a wound check next week. She can cancel the appointment if she is all better. She knows to contact us to be sooner if her finger is looking any worse. Orders: Orders XR hand RT min 3V Today M79.641 - Pain in right hand Medications: New clindamycin HCl 300 mg PO QID 56 caps 0RF Coding Level of Care Code Est Pt Level 3 (80578) Diagnoses Paronychia of right index finger L03.011
[2023-02-26 14:18] VITALS: BMI 25.4
== END 2023-02-26 15:59 | disposition home or self-care (01) ==
PROVIDERS: Visit Provider Orthopaedic Surgery
DX: L03.011 Cellulitis of right finger (principal)
CPT/HCPCS: 99213

== ENCOUNTER 2024-06-30 11:39 | Outpatient (REF) | payer OTHER, SELFPAY ==
[2024-06-30 14:23] LABS: Influenza A PCR NEGATIVE (Negative); Influenza B PCR NEGATIVE (Negative); Resp Syncy Virus RNA Qual PCR POSITIVE (Negative); SARS COV2 PCR INHOUSE NEGATIVE (Negative)
== END 2024-06-30 11:40 | disposition home or self-care (01) ==
LOC: HO.LAB 11:39
PROVIDERS: PCP Physician Assistant; Visit Provider Physician Assistant
DX: J06.9 Acute upper respiratory infection, unspecified (principal)
CPT/HCPCS: 0241U; 99212

== ENCOUNTER 2024-06-30 11:39 | Outpatient (AMB) | payer OTHER, SELFPAY ==
[2024-06-30 11:41] VITALS: BP 114/86; PULSE 97; TEMP 36.8; O2SAT 98; BMI 28.2
--- NOTE | 2024-06-30 11:41 | AM.OFFWIN_ITS ---
Intake Vital Signs 06/30/24 11:41 Height 5 ft 2 in Weight 154 lb 6 oz BMI 28.2 BP 114/86 Blood Pressure Location Rt brachial Position Sitting Pulse 97 Pulse Source Pulse Oximeter Temp 98.2 F Pulse Oximetry (%) 98 Oxygen Delivery Method Room Air Intake Visit Reasons: EP chest & nasal congestion, cough, sneezing Intake Note: Pt presents to the office today for c/o chest,nasal congestion,coughing, sneezing, and headaches x4 days. Patient Tobacco Use Status: Current everyday Tobacco user Allergies acetaminophen [Tylenol] Allergy (Unknown, Verified 06/30/24 11:50) stomach upset doxycycline Allergy (Unknown, Verified 06/30/24 11:50) stomach upset HPI HPI Comments History of Present Illness Details History - The patient is a 39-year-old female pr esenting with symptoms of a viral upper respiratory infection. - Symptoms began suddenly Saturday night a nd have persisted for four days. - The illness includes nasal and chest c ongestion, cough, sneezing, and headaches, all without accompanying fever. - Shortness of breath and nocturnal whee zing were denied. - The patient identifies sinus pain and pressure, with a spread to teeth. - Previous sinus infections were noted, though detailed history was not provided. - Shared living space with a symptomatic [id number]; specific diagnosis of the virus is undetermined. 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 Physical Exam General: Cooperative, healthy appearing, comfortable and no acute distress Orientation/consciousness: Patient oriented x3 Limitations: No limitations Head: Normal to inspection Ears: Hearing grossly normal bilaterally, external ears normal and TM's normal bilaterally Nose: Normal external nose present, Normal nares present and No nasal discharge present Face and sinus: Normal facial exam and Yes sinuses nontender Mouth: Normal oral and palatal mucosa present and moist mucous membranes Throat: Yes tonsils normal, Yes uvula midline. Posterior oropharynx erythema, no exudates Eyes: Appearance normal, both eyes and all related structures Neck: Normal visual inspection Respiratory: Clear to auscultation bilaterally. Normal respiratory effort, able to speak in complete sentences, Actively coughing, no respiratory distress, not tachypneic, no tripod positioning and no use of accessory muscles Cardiovascular: Regular rate and rhythm. 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 Testing for common respiratory viruses, flu, covid and rsv was performed with swabs sent to [facility], results anticipated shortly. Instructions were given for correct application of fluticasone nasal spray, and a prescription dispatched. Prednisone was prescribed for inflammatory relief. The patient is advised to perform nasal saline rinses for sinus discomfort and use sinus nasal sprays throughout the day. Follow-up actions will depend on test results. She was counseled on maintaining distance from her work environment due to the risk to her COPD patients, will write work note for up to 5 days. Patient was informed and verbally consented to the use of an ambient scribe for clinic note documentation during this visit Orders: Orders SARS-CoV2/FLU/RSV Today J06.9 - Acute upper respiratory infection, unspecified Medications: New fluticasone propionate 50 mcg/actuation administer into each nostril 1 spray intranasal Q12H 16 grams 0RF prednisone 20 mg PO QAM 5 tabs 0RF Coding Level of Care Code Est Pt Level 3 (50861) Diagnoses URI, acute J06.9
== END 2024-06-30 12:14 | disposition home or self-care (01) ==
PROVIDERS: Visit Provider Physician Assistant
DX: J06.9 Acute upper respiratory infection, unspecified (principal)